=== PATIENT | male | born 1990 | race Caucasian/White ===

== ENCOUNTER 2017-11-29 10:38 | Emergency (ER) | payer OTHER ==
--- NOTE | 2017-11-29 12:08 | EDPHY ---
H & P Stated Complaint: Lower back pain acute onset yesterday no known trauma Time Seen by Provider: 11/29/17 11:56 HPI/ROS: CHIEF COMPLAINT: Low back pain HISTORY OF PRESENT ILLNESS: 26-year-old male generally healthy arrives via private vehicle complaining of acute low back pain after moving this objects at home. No trauma or fall. No incontinence. No retention. No saddle anesthesia. No fever or chills. No flu-like symptoms. No myalgias. No malaise. REVIEW OF SYSTEMS: A ten point review of systems was performed and is negative with the exception of the items mentioned in the HPI PAST MEDICAL & SURGICAL HISTORY: No pertinent medical or surgical history SOCIAL HISTORY: nonsmoker no drug use. 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 Appears to be in no acute distress. 2) HEAD: Normocephalic, atraumatic 3) HEENT: Pupils equal, round, reactive to light bilaterally. Sclera anicteric. Nasopharynx, oropharynx, clear, no lesions. 4) NECK: Full range of motion, no meningeal signs. 5) LUNGS: Clear auscultation bilaterally, no wheezes, no rhonchi, no retractions. 6) HEART: Regular rate and rhythm, no murmur, no heave, no gallop. 7) ABDOMEN: No guarding, no rebound, no focal tenderness, negative McBurney's, negative Buenrostro's, negative Rovsing's, negative peritoneal sign, 8) MUSCULOSKELETAL: Moving all extremities, no focal areas of tenderness, no obvious trauma. No peripheral edema or discoloration. 9) BACK: tender to palpation paraspinous muscle. No CVA tenderness, no midline vertebral tenderness, no fluctuance, no step-off, no obvious trauma, no visual or palpable abnormality. Patella, Achilles reflexes intact to bilateral strength 5/5 10) SKIN: No rash, no petechiae. 11) NEURO: Awake, alert, and oriented to person, place and time. Answers questions appropriately. There were no obvious focal neurologic abnormalities. No cerebellar dysfunction. Normal steady gait. Upper and lower extremities bilaterally with strength 5 / 5, reflexes 2+.. DIFFERENTIAL DIAGNOSIS: In no particular order, including but not limited to, fracture, sprain/strain, cauda equina, spinal infectious etiology. MEDICAL DECISION MAKING Lower index of suspicion for cauda equina, epidural abscess, epidural hematoma, lumbar myositis, diskitis, as the patient is neurologically intact in the lower extremities, has patella and Achilles reflexes intact and equal bilaterally, has no neurologic deficits, no incontinence, no retention, no midline pain, no fluctuance, afebrile, no flulike symptoms. Pain may be secondary to muscular strain, may be secondary to discogenic etiology. At this point I do not identify definitive indication for emergent MRI, however patient may necessitate this on an outpatient basis. Patient given acute back pain precautions. Patient verbalizes understanding of discharge instructions. I believe them be competent decision-makers. All questions and concerns have been addressed by me. Ample opportunity for questions have been provided . The patient understands that this diagnosis is provisional and can never be 100 % accurate. Usual and customary warnings were given concerning the clinical impression and all the patient's questions were answered. The patient was instructed to return to the emergency department should her symptoms worsen or return, or develop any new symptoms, otherwise to followup as directed in discharge instructions. - Personal History Tetanus Vaccine Date: 2013 - Medical/Surgical History Hx Asthma: No Hx Chronic Respiratory Disease: No Hx Diabetes: No Hx Cardiac Disease: No Hx Renal Disease: No Hx Cirrhosis: No Hx Alcoholism: No Hx HIV/AIDS: No Hx Splenectomy or Spleen Trauma: No Other PMH: denies. gerd - Social History Smoking Status: Former smoker Constitutional: Initial Vital Signs Temperature (C) 37.0 C 11/29/17 10:54 Heart Rate 48 L 11/29/17 10:54 Respiratory Rate 20 11/29/17 10:54 Blood Pressure 120/79 11/29/17 10:54 O2 Sat (%) 99 11/29/17 10:54 O2 Delivery Mode Room Air Allergies/Adverse Reactions: No Known Allergies Allergy (Verified 11/29/17 10:53) Home Medications: Medication Instructions Recorded Cyclobenzaprine [Flexeril 10 MG 10 mg PO TID #15 tab 11/29/17 (RX)] Lidocaine [Lidoderm] 1 each TP DAILY #30 adh..patch 11/29/17 methylPREDNISolone [Medrol Dose 4 mg PO DAILY #1 ea 11/29/17 Bernabe] Medical Decision Making - Data Points Medications Given: Discontinued Medications Cyclobenzaprine HCl (Flexeril) 10 mg PO EDNOW ONE Stop: 11/29/17 12:10 Last Admin: 11/29/17 12:28 Dose: 10 mg Ketamine HCl (Ketamine) 50 mg NASAL EDNOW ONE Stop: 11/29/17 13:19 Last Admin: 11/29/17 13:24 Dose: 50 mg Ketorolac Tromethamine (Toradol) 60 mg IM EDNOW ONE Stop: 11/29/17 12:11 Last Admin: 11/29/17 12:28 Dose: 60 mg Miscellaneous Medication (Icy Hot Lidocaine/Menthol 4%/1% Patch) 1 patch TD EDNOW ONE Stop: 11/29/17 12:10 Last Admin: 11/29/17 12:29 Dose: 1 patch Departure - Departure Disposition: Home, Routine, Self-Care Clinical Impression: Low back pain Qualifiers: Chronicity: acute Back pain laterality: bilateral Sciatica presence: without sciatica Qualified Code(s): M54.5 - Low back pain Condition: Good Instructions: Low Back Strain (ED) Additional Instructions: Seek medical attention if you develop new or worsening pain, if you develop bladder or bowel dysfunction, numbness around your perineum, foot drop, or any other symptoms that concern you. Referrals: Chris Georges MD [[facility] [place] Primary Care Provider] - 2-3 days, call for appt. Stand Alone Forms: Work Excuse Prescriptions: Cyclobenzaprine [Flexeril 10 MG (RX)] 10 mg PO TID #15 tab Lidocaine [Lidoderm] 1 each TP DAILY #30 adh..patch methylPREDNISolone [Medrol Dose Bernabe] 4 mg PO DAILY #1 ea
[2017-11-29] MEDS ORDERED: LIDOCAINE 4%/MENTHOL 1% PATCH TD ONE (12:09)
[2017-11-29] MEDS ORDERED: CYCLOBENZAPRINE 10 MG TAB PO ONE (12:09)
[2017-11-29] MEDS ORDERED: KETOROLAC 30 MG/1 ML SDV IM ONE (12:10)
[2017-11-29] MEDS ORDERED: KETAMINE 500 MG/10 ML VIAL NASAL ONE (13:18)
[2017-11-29 14:12] VITALS: BP 140/80
[2017-11-29] MEDS ORDERED: PATCH REMOVAL 1 EA PATCH TD SCH (21:00)
== END 2017-11-29 14:13 | disposition home or self-care (01) ==
DX: M54.5 Low back pain (principal); Z87.891 Personal history of nicotine dependence
CPT/HCPCS: J1885